=== PATIENT | male | born 1965 | race Caucasian/White ===

== ENCOUNTER 2016-03-15 11:39 | Emergency (ER) | payer BC ==
[2016-03-15 12:32] VITALS: BP 144/79
[2016-03-15] MEDS ORDERED: Albuterol/Ipratropium 3.0-0.5 MG/3 ML Neb Soln NEB ONE (12:48)
--- NOTE | 2016-03-15 13:16 | EDM.PDOC ---
ED HISTORY OF PRESENT ILLNESS - General Chief Complaint: Respiratory Problem Stated Complaint: COUGH Time Seen by Provider: 03/15/16 12:00 Source of Information: Reports: Patient History Limitations: Reports: No limitations - History of Present Illness INITIAL COMMENTS - FREE TEXT/NARRATIVE: The patient comes in with a chronic cough. The cough has actually been going on for the past two weeks and it began to be productive and now is becoming a little bit less productive. He states that he has not been sleeping very well. He does sleep with a CPAP machine. He states that his son has elements as well but is recovering. The patient has gone through a couple bottles of cough suppressant and has been getting plenty of sleep but to no avail. I did check his strep today and it was negative. I did consider doing influenza A and B but the patient really did not want to go through that. I did do a chest x-ray and it was grossly normal. I did give the patient a shot of Rocephin and Augmentin. I do believe that this is upper respiratory infection and he also has a little bit of postnasal drip which may be a sign of sinus infection. Because of the DIP of the duration of his ailments I did decide to treat him with antibiotics and I also gave him a cough suppressant with codeine. Patient denies any fever or chills. He feels that it is about the sternum that he is having this issue. The patient has been asthmatic for many years. He is a nonsmoker. He does have a rescue inhaler but he hardly ever uses it. He is otherwise very active with skiing. Timing/Duration: Reports: Constant, Other (Not improving) Severity: severe Location, General: Reports: chest Quality: Reports: Ache Improves with: Reports: None Worsens with: Reports: Movement Context, General: Reports: Sick contact (maybe) Associated Symptoms (General): Reports: cough, cough w sputum, loss of appetite , malaise Treatments LEATHER COATER: Reports: Other (see below) (As stated above.) - Related Data Allergies/ADRs: Allergies Allergy/AdvReac Type Severity Reaction Status Date / Time No Known Allergies Allergy Verified 03/15/16 12:35 Home Meds: Home Meds Amoxicillin/Potassium Clav [Amox Tr-K Clv 875-125 mg Tab] 1 each PO BID #20 tablet 03/15/16 [Rx] Codeine/guaiFENesin [Robitussin AC] 10 ml PO BEDTIME PRN #120 ml 03/15/16 [Rx] Cyclobenzaprine HCl [Cyclobenzaprine HCl] 10 mg PO DAILY 03/15/16 [History] Fluticasone/Salmeterol [Advair 250-50 Diskus] 1 dose PO ASDIRECTED 03/15/16 [ History] Sertraline HCl [Sertraline HCl] 100 mg PO DAILY 03/15/16 [History] Past Medical History Respiratory History: Reports: Asthma Psychiatric History: Reports: Depression Social & Family History - Tobacco Use Smoking Status *Q: Never Smoker ED ROS GENERAL - Review of Systems Review Of Systems: See Below Constitutional: Reports: malaise, fatigue, decreased appetite HEENT: Reports: Throat pain (Some from coughing). Denies: Ear discharge, Ear pain, Rhinitis Respiratory: Reports: cough, sputum. Denies: hemoptysis Cardiovascular: Reports: No symptoms Endocrine: Reports: fatigue GI/Abdominal: Reports: No symptoms : Reports: no symptoms Musculoskeletal: Reports: no symptoms Skin: Reports: no symptoms Neurological: Reports: no symptoms Psychiatric: Reports: No symptoms Hematologic/Lymphatic: Reports: no symptoms Immunologic: Reports: no symptoms ED EXAM, GENERAL - Physical Exam Exam: See Below Exam Limited By: No limitations General Appearance: alert, moderate distress Eye Exam: bilateral eye: EOMI Ears: normal external exam, normal canal, hearing grossly normal, normal TMs Nose: normal inspection, normal mucosa Throat/Mouth: Inflammation (no plaques. ) Head: atraumatic, normocephalic. No: facial tenderness, sinus tenderness Neck: normal inspection, supple, non-tender, full range of motion. No: lymphadenopathy (L), lymphadenopathy (R) Respiratory/Chest: no respiratory distress, other (Tight sounding chest. Improved some with Duoneb. ) Cardiovascular: regular rate, rhythm, no murmur GI/Abdominal: normal bowel sounds, soft, non tender Extremities: normal inspection Neurological: alert, oriented Psychiatric: normal affect Skin Exam: Warm, Dry Lymphatic: no adenopathy Course - Vital Signs Last Recorded V/S: Last Vital Signs Temp 37.1 C 03/15/16 12:31 Pulse 96 03/15/16 12:31 Resp 18 03/15/16 12:31 BP 144/79 H 03/15/16 12:31 Pulse Ox 95 03/15/16 12:31 - Orders/Labs/Meds Meds: Medications Discontinued Medications Generic Name Dose Route Start Last Admin Trade Name Stanilsav PRN Reason Stop Dose Admin Albuterol/Ipratropium 3 ml 03/15/16 12:48 03/15/16 12:57 Duoneb 3.0-0.5 Mg/3 Ml NEB 03/15/16 12:49 3 ml ONETIME ONE Administration Amoxicillin/Clavulanate Potassium 1 tab 03/15/16 13:26 03/15/16 13:36 Augmentin 875 Mg/125 Mg PO 03/15/16 13:27 1 tab ONETIME ONE Administration Ceftriaxone Sodium 1 gm 03/15/16 13:20 03/15/16 13:36 Rocephin IM 03/15/16 13:21 1 gm ONETIME ONE Administration Guaifenesin/Codeine Phosphate 1 packet 03/15/16 13:20 03/15/16 13:35 Take Home: Codeine/Guaifenesin 100-10 Mg/5ml PO 03/15/16 13:21 1 packet ONETIME ONE Administration Departure - Departure Time of Disposition: 13:14 Disposition: Home, Self-Care 01 Condition: good Clinical Impression: Upper respiratory infection Qualifiers: URI type: unspecified URI Qualified Code(s): J06.9 - Acute upper respiratory infection, unspecified Prescriptions: Amoxicillin/Potassium Clav [Amox Tr-K Clv 875-125 mg Tab] 1 each PO BID #20 tablet Codeine/guaiFENesin [Robitussin AC] 10 ml PO BEDTIME PRN #120 ml PRN Reason: Cough Instructions: Upper Respiratory Infection, Adult, [id number] Referrals: Oli Noe MD [Primary Care Provider] - Forms: ED Department Discharge Additional Instructions: UC Robitussin with codeine for cough suppressant at night. Your chest x-ray does look good. Your strep test did come back negative. I would recommend continuing to use good hydration and plenty of sleep. Because of the duration of your ailments I believe that you would benefit from a antibiotic. You also received a shot of Rocephin and a dose of antibiotic. You also received a nebulizer treatment.
[2016-03-15] MEDS ORDERED: Take Home: Codeine/guaiFENesin 100-10 MG/5 ML Syrup 5 ML, 2 Cup Pack PO ONE (13:20)
[2016-03-15] MEDS ORDERED: cefTRIAXone 1 GM Vial IM ONE (13:20)
[2016-03-15] MEDS ORDERED: Amoxicillin/Clavulanate K 875-125 MG Tab PO ONE (13:26)
== END 2016-03-15 13:44 | disposition home or self-care (01) ==
LOC: VM.ED 11:39
DX: J06.9 Acute upper respiratory infection, unspecified (principal); J45.909 Unspecified asthma, uncomplicated; F32.9 Major depressive disorder, single episode, unspecified; Z79.899 Other long term (current) drug therapy
CPT/HCPCS: 71020; 87081; 87880; 94640; 96372; 99283; A9270; J0696